=== PATIENT | male | born 1980 | race Caucasian/White ===

== ENCOUNTER 2019-07-07 14:00 | Day surgery (SDC) ==
[2019-07-07 14:20] LABS: URINE SOURCE CLEAN CATCH
[2019-07-07 14:24] LABS: BASO# 0.03 X1000 (0.0-0.2); BASO% 0.2 % (0.0-0.8); EOS# 0.12 X1000 (0.0-0.7); EOS% 0.8 % (0.0-10.0); HEMOGLOBIN 14.7 g/dL (14.0-18.0); IMM GRAN# 0.03 X1000 (0.0-0.04); IMM GRAN% 0.2 % (0.0-0.5); LYMPH# 3.04 X1000 (1.2-3.4); LYMPH% 21.3 % (20.5-51.1); MCH 28.6 PG (27-31); MCHC 33.4 g/dL (33-37); MCV 85.6 FL (81-99); MONO# 0.72 X1000 (0.11-0.59); MONO% 5.1 % (1.7-9.3); MPV 9.8 FL (7.4-10.4); NEUT# 10.31 X1000 (1.4-6.5); NEUT% 72.4 % (42.2-75.2); PLT 457 X1000 (130-400); RBC 5.14 XMIL (4.7-6.1); RDW 13.2 % (11.5-14.5); WBC 14.25 X1000 (4.8-10.8)
[2019-07-07 14:27] LABS: BILIRUBIN URINE SMALL (NEGATIVE); BLOOD URINE NEGATIVE (NEGATIVE); COLOR YELLOW; GLUCOSE URINE NEGATIVE (NEGATIVE); KETONE URINE 60 mg/dL (NEGATIVE); LEUKOCYTES URINE NEGATIVE (NEGATIVE); NITRITE URINE NEGATIVE (NEGATIVE); PROTEIN URINE 50 mg/dL (NEGATIVE); SP GRAVITY URINE 1.038; TURBIDITY URINE CLEAR (CLEAR); UROBILINOGEN URINE 3 mg/dL (NORMAL)
[2019-07-07 14:29] LABS: UR EPITHELIAL CELLS <10 /HPF (<10); URINE BACTERIA NEGATIVE /HPF; URINE WBC <10 /HPF (<10)
[2019-07-07 14:49] LABS: AGAP 15; ALB/GLOB RATIO 1.1; ALBUMIN 4.4 g/dL (3.5-5.0); ALKALINE PHOSPHATASE 107 U/L (32-122); BUN 8 mg/dL (8-22); CALCIUM 9.7 mg/dL (8.8-10.2); CHLORIDE 98 mmol/L (98-107); COSMO 276; ESTIMATED GFR > 60; GLUCOSE 104 mg/dL (70-104); GOT 53 U/L (10-34); GPT 35 U/L (10-44); SODIUM 139 mmol/L (136-145); TCO2 26 mmol/L (25-35); TOTAL BILIRUBIN 1.27 mg/dL (0.20-1.00); TOTAL PROTEIN 8.3 g/dL (6.3-8.3)
[2019-07-07] MEDS ORDERED: NS 1,000 ML IV ONE (15:08)
[2019-07-07] MEDS ORDERED: BENTYL IM ONE (15:08)
--- NOTE | 2019-07-07 15:34 | Diag Imaging Result Doc PS360 ---
EXAM: CT ABDOMEN/PELVIS W/O CONTRAST 07/07/2019 HISTORY: RUQ abdominal pain TECHNIQUE: This exam was performed using automated exposure control, adjustment of mA or kV according to patient size, and/or use of iterative reconstruction technique. COMMENT: There is no evidence of acute disease in the visualized portion of the chest. There are multiple large gallstones in the gallbladder which are apparently mostly cholesterol stones and measure in excess of 2 cm in size. There is apparent wall edema of the gallbladder. There is no evidence of nephrolithiasis or hydronephrosis. There is no evidence of bowel obstruction. The appendix is normal in caliber. There is free fluid in the pelvis dependently. The urinary bladder is unremarkable. The visualized skeleton is within normal limits. IMPRESSION: Cholelithiasis. The possibility of cholecystitis cannot be excluded. Electronically signed by Joshua Demarco 07/07/2019 3:31 PM
[2019-07-07] MEDS ORDERED: FLAGYL 500 MG/NS 500 MG/100 ML IVPB IV ONE (15:48)
[2019-07-07] MEDS ORDERED: CIPRO 400 MG/D5W 400 MG/200 ML IVPB IV ONE (15:48)
[2019-07-07] MEDS ORDERED: TORADOL IV ONE (15:57)
[2019-07-07] MEDS ORDERED: VERSED ONE (16:25)
[2019-07-07] MEDS ORDERED: NORCURON ONE (16:25)
[2019-07-07] MEDS ORDERED: DIPRIVAN 1% ONE (16:25)
[2019-07-07] MEDS ORDERED: SODIUM CHLORIDE 0.9% 10 ML ONE (16:25)
[2019-07-07] MEDS ORDERED: XYLOCAINE-MPF 2% ONE (16:25)
[2019-07-07] MEDS ORDERED: FENTANYL ONE (16:25)
[2019-07-07] MEDS ORDERED: QUELICIN (DOSE) ONE (16:25)
--- NOTE | 2019-07-07 16:31 | PROVIDER DOCUMENTATION ---
This chart was entered by Sadie Ahumada Scribe, acting as scribe for Julieth Peraza MD. HPI-Abdominal Pain/GI Problem - General Chief Complaint: Abdominal Pain Stated Complaint: ABD PAIN,BACK PAIN,VOMITING,DIARRHEA Time Seen by Provider: 07/07/19 14:58 Source: patient Allergies/Adverse Reactions: Patient Allergies Allergy/AdvReac Type Severity Reaction Status Date / Time No Known Allergies Allergy Verified 07/07/19 16:28 Home Medications: Home Medication List Medication Instructions Recorded Confirmed Last Taken Type Sertraline HCl 1 tab PO DAILY 07/07/19 07/07/19 Unknown History Trazodone [Desyrel] 12.35 mg PO QHS 07/07/19 07/07/19 Unknown History Hydrocodone/Acetaminophen [[place] 1 ea PO Q6H PRN #10 tab 07/08/19 Unknown Rx 7.5-325 Tablet] - History of Present Illness-ABD Nature of Presenting Problems: 39yom presents to ED cc RUQ pain that radiates to back and diarrhea since this morning. Pt reprots he did take Lamectal for the diarrhea, went to sleep and when he woke up the abdominal pain was severe for the 2nd time in a week. Pt reports, with approval, he stopped Suboxone cold turkey after 6yrs on it. Pt is on Zoloft and Trazadone. Abdominal Pain Onset Location: reports: RUQ Pain Radiation: reports: back Quality of Pain: reports: throbbing Severity in ED: reports: mild, moderate Onset/Duration: reports: this morning Timing: reports: still present, intermittent Activities at Onset: reports: light activity Exposure to sick contacts?: No Modifying Factors: worse with: palpation Associated Symptoms: reports: diarrhea Similar Symptoms Previously?: No Recently seen or treated by another doctor?: No Review of Systems - Adult - REVIEW OF SYSTEMS - ADULT Constitutional: reports: see HPI. denies: chills, fever, fatique Eyes: reports: no symptoms reported Ears, Nose, Mouth & Throat: reports: no symptoms reported Cardiovascular: reports: no symptoms reported Respiratory: reports: no symptoms reported Gastrointestinal: reports: see HPI, abdominal pain (RUQ), diarrhea. denies: vomiting Genitourinary: reports: no symptoms reported Musculoskeletal: reports: no symptoms reported Integumentary: reports: no symptoms reported Neurological: reports: no symptoms reported Psychiatric: reports: no symptoms reported Endocrine: reports: no symptoms reported Hematologic/Lymphatic: reports: no symptoms reported Allergic/Immunologic: reports: no symptoms reported All Other Systems: Reviewed and Negative Past History - Adult - PAST MEDICAL HISTORY-ADULT Review of Records: reports: Nursing Assessment Review, Medications Reviewed, Social history reviewed & non-contributory. Major Childhood Illnesses: reports: denies history Cardiovascular: reports: denies history Respiratory: reports: denies history Gastrointestinal: reports: denies history Obstetrical/Gynecological: reports: denies history Genitourinary: reports: denies history Musculoskeletal: reports: denies history Neurological: reports: denies history Endocrine/Immune: reports: denies history Other Conditions: reports: denies history - IMMUNIZATION STATUS Childhood Immunizations: See Nurse Assessment Flu Vaccine: See Nurse Assessment - FAMILY HISTORY Family History: reviewed, not pertinent - SOCIAL HISTORY Smoking: other (vape) Provider spent 3-5 mins advising pt. on dangers of tobacco.: Discussed manners to quit use, and f/u contacts for add'l counseling. Physical Exam-General - PHYSICAL EXAM-ADULT Initial Vital Signs Reviewed: Yes - CONSTITUTIONAL General Appearance: appears well, alert, no apparent distress. negative: anxiou s, combative - EYES Eyes: PERRL/EOMI, pink conjunctivae. negative: photophobia - HEAD, EARS, NOSE, MOUTH & THROAT HENMT: normocephalic/atraumatic, moist mucous membranes. negative: angioedema - NECK Neck: normal inspection - RESPIRATORY Respiratory: chest non-tender, lungs clear, normal breath sounds. negative: stridor, wheezing - CARDIOVASCULAR Cardiovascular: normal peripheral pulses, regular rate, rhythm, no edema. negative: bradycardia, tachycardia - GASTROINTESTINAL (ABDOMEN) Abdominal Exam: normal bowel sounds, soft, tenderness (RUQ). negative: dist ended - MUSCULOSKELETAL Back Exam: no vertebral tenderness, CVA tenderness (right) Extremity: normal range of motion, normal gait, normal inspection. negative: deformity - SKIN Integumentary: normal color, normal turgor, warm/dry. negative: diaphoresis, jaundice - PSYCHIATRIC Psych/Mental Status: normal mood/affect, oriented x 3. negative: anxious, disheveled Progress - PLAN OF CARE/RESULTS Progress/Plan/Lab Results: Vital Signs - 8 hr 07/07/19 14:03 07/07/19 15:03 Temperature 98.0 F 99 F Pulse Rate 68 63 Respiratory Rate 20 20 Blood Pressure 121/70 120/79 O2 Sat by Pulse Oximetry 97 96 Laboratory Results - last 24 hr 07/07/19 07/07/19 07/07/19 14:10 14:10 14:13 WBC 14.25 H RBC 5.14 Hgb 14.7 Hct 44.0 MCV 85.6 MCH 28.6 MCHC 33.4 RDW Std Deviation 13.2 Plt Count 457 H MPV 9.8 Immature Gran % (Auto) 0.2 Neut % (Auto) 72.4 Lymph % (Auto) 21.3 [place] % (Auto) 5.1 Eos % (Auto) 0.8 Baso % (Auto) 0.2 Immature Gran # (Auto) 0.03 Neut # (Auto) 10.31 H Lymph # (Auto) 3.04 [place]borne # (Auto) 0.72 H Eos # (Auto) 0.12 Baso # (Auto) 0.03 Sodium 139 Potassium 4.0 Chloride 98 Carbon Dioxide 26 Anion Gap 15 BUN 8 Creatinine 1.0 Estimated GFR/1.73 m2 > 60 BUN/Creatinine Ratio 8 Glucose 104 Calculated Osmolality 276 Calcium 9.7 Total Bilirubin 1.27 H AST 53 H ALT 35 Alkaline Phosphatase 107 Total Protein 8.3 Albumin 4.4 Globulin 3.9 Albumin/Globulin Ratio 1.1 Urine Source CLEAN CATCH Urine Color YELLOW Urine Turbidity CLEAR Urine pH 6.0 Ur Specific [place] 1.038 Urine Protein 50 A Ur Glucose (Stick) NEGATIVE Ur Ketones (Stick) 60 A Urine Blood NEGATIVE Urine Nitrite NEGATIVE Urine Bilirubin SMALL A Urobilinogen Dipstick 3 A Urine Leukocytes NEGATIVE Urine WBC (Auto) <10 Urine RBC (Auto) 10-20 A U Epithel Cells (Auto) <10 Urine Bacteria (Auto) NEGATIVE Urine Crystals Not Reportable Small Round Cells Not Reportable Urine Casts Not Reportable Urine Yeast-like Cells Not Reportable Orders Category Date Time Status NPO Diet 07/07/19 15:[address] ABDOMEN/PELVIS W/O CONTRAST [CT] Stat Exams 07/07/19 15:03 Ordered CBC WITH DIFF [HEME] Stat Lab 07/07/19 14:10 Completed COMPREHENSIVE METABOLIC PANEL [CHEM] Stat Lab 07/07/19 14:10 Completed URINALYSIS [URINALYSIS] Stat Lab 07/07/19 14:13 Completed URINE MANUAL MICROSCOPIC [URINALYSIS] Stat Lab 07/07/19 14:13 Completed Ns 1000 ml IV Bolus X1 Med 07/07/19 15:08 Ordered 0.9% Sodium Chloride Inj [Ns] 1,000 ml IV 999 mls/hr Abd Pain/Abn Bleeding Stat Oth 07/07/19 14:06 Ordered Result Diagrams: 07/07/19 14:10 07/07/19 14:10 - REASSESSMENT Reassessment #1 Time Reassessed: 16:12 Status: unchanged (pt states he tried to eat some crackers and drink water at 13 00 today.) - CT/MRI 1 CT Study: Abdomen Impression: See EMR Report (IMPRESSION: Cholelithiasis. The possibility of chol ecystitis cannot be excluded. Electronically signed by Joshua Demarco 07/07/2019 3:31 PM) - CONSULTS/PCP/HOSPITALIST Notification #1 *Consult/PCP/Hospitalist*: Dr. Morales paged Time Discussed: 15:52 #2 Consult: Dr. Morales Time Discussed: 16:08 Consult Disposition: Admit Departure - Departure Date of Disposition Decision: 07/07/19 Time of Disposition Decision: 16:08 DIAGNOSIS: Cholecystitis, Cholelithiasis, Urinary tract infection Disposition: ADMITTED INPATIENT 09 Certified Medical Emergency: Emergent Condition: Stable - Critical Care Note This patient required my direct & personal management of CC.: No Attestation - Physician/ VALDEMAR Attestation Patient care was provided by Advanced Practice Provider:: No The physician spent face to face time with patient:: Yes Advanced Practice Provider documentation review:: Supervising physician onsite and consulted in the evaluation and care of this patient. The physician did have a face to face encounter with the patient. This chart was documented by the indicated scribe, (Sadie Ahumada Scribe) and accurately reflects the services I performed and decisions made by me, Julieth Peraza MD, as attested by the provider's signature.
[2019-07-07] MEDS ORDERED: KEFZOL 1 GM/D5W 1 GM/50 ML IVPB ONE ×2 (16:50)
[2019-07-07] MEDS ORDERED: LR 1,000 ML ONE ×4 (16:51→18:50)
[2019-07-07] MEDS ORDERED: SENSORCAINE 0.5%-EPI 1:200,000 ONE ×2 (16:51)
[2019-07-07] MEDS ORDERED: SODIUM CHLORIDE 0.9% ONE ×2 (16:51)
[2019-07-07] MEDS ORDERED: ZOFRAN ONE (17:24)
[2019-07-07] MEDS ORDERED: DECADRON ONE (17:24)
[2019-07-07] MEDS ORDERED: KEFZOL 1 GM/D5W 1 GM/50 ML IVPB IV ONE (17:30)
[2019-07-07] MEDS ORDERED: TORADOL ONE (17:51)
[2019-07-07] MEDS ORDERED: NEOSTIGMINE ONE (17:51)
[2019-07-07] MEDS ORDERED: ROBINUL ONE (17:51)
[2019-07-07] MEDS ORDERED: PHENERGAN IV PRN (19:12)
[2019-07-07] MEDS ORDERED: DILAUDID ONE ×2 (19:12)
[2019-07-07] MEDS ORDERED: SODIUM CHLORIDE 0.9% INJ PRN (19:15)
[2019-07-07] MEDS: DILAUDID IV PRN ×2 (19:15→19:24)
--- NOTE | 2019-07-07 20:50 | Diag Imaging Result Doc PS360 ---
EXAM: OPERATIVE CHOLANGIOGRAM 07/07/2019 HISTORY: CHOLECYSTITIS TECHNIQUE: Intraoperative cholangiogram COMMENT: There are no filling defects. There is contrast in the duodenum. IMPRESSION: No evidence of retained stones. Electronically signed by Joshua Demarco 07/07/2019 8:48 PM
--- NOTE | 2019-07-07 21:42 | HISTORY AND PHYSICAL ---
HISTORY OF PRESENT ILLNESS: Tony Boggs is a 39-year-old, white male who is brought to the emergency department with his mother at his side. For the last 2 days, he has been experiencing right upper quadrant pain radiating to his back. A CT scan was performed as part of his evaluation in our emergency department, which suggested gallstones. His white blood cell count was elevated and we were asked to see him for acute cholecystitis. PAST MEDICAL HISTORY: He is coming off opioids with Suboxone. He has a history of hepatitis C. MEDICATIONS: As above. ALLERGIES: No known drug allergies. SOCIAL HISTORY: Works in IT. His mother was at the bedside. FAMILY HISTORY: He does have a family history of gallstones and cholecystectomy. REVIEW OF SYSTEMS: Fourteen point review of systems was performed and was essentially negative except for the history of present illness. PHYSICAL EXAMINATION: GENERAL: On exam, Tony Boggs is a slim, young, white male in no acute distress. HEENT EXAMINATION: No jaundice. No oral lesions. Satisfactory dentition. No cervical or supraclavicular lymphadenopathy. HEART: Has a regular rate. LUNGS: Were clear to auscultation and percussion bilaterally. ABDOMEN: Was flat. He was tender in the right upper quadrant. There was no palpable mass. No previous scar. No evidence of hernia. RECTAL EXAM: Was not performed. EXTREMITIES: He does have palpable peripheral pulses. No peripheral edema. NEUROLOGICALLY: No focal deficit. He is awake and cooperative. IMPRESSION: Acute cholecystitis with cholelithiasis. PLAN: Laparoscopic, possible open cholecystectomy this evening. I have discussed the procedure in detail with him and his mother at the bedside including its risks of bleeding, infection, injury to the extrahepatic bile ducts requiring reoperation, conversion of laparoscopic to open cholecystectomy, bile leak requiring reoperation for drainage, and injury to intra-abdominal contents for trocar placement. They understand the need for surgery and its risks, and they want to proceed. cc: Julieta Morales MD
[2019-07-07] MEDS ORDERED: TYLENOL PO PRN (22:00)
[2019-07-07] MEDS: MOTRIN PO SCH (22:47)
[2019-07-07] MEDS: NORCO-10 PO PRN (22:47)
[2019-07-07] MEDS: PERIDEX MT SCH (22:47)
[2019-07-07] MEDS: LR 1,000 ML IV SCH (22:49)
--- NOTE | 2019-07-08 05:12 | OPERATIVE NOTE ---
PROCEDURE DATE: 07/07/2019 PREOPERATIVE DIAGNOSIS: Acute cholecystitis with cholelithiasis. POSTOPERATIVE DIAGNOSIS: Acute cholecystitis with cholelithiasis. PRINCIPAL PROCEDURE: Laparoscopic cholecystectomy with intraoperative cholangiogram. SURGEON: Julieta Morales MD ELECTRICAL CONTROLS TECHNICIAN: JOSE Garber ANESTHESIA: General, in addition to local anesthetic. ESTIMATED BLOOD LOSS: 30 mL DRAINS: None. INDICATIONS: Mr. Tony Boggs is a 39-year-old white male who presented to our emergency department with a 2-day history of intermittent right upper quadrant pain. His white blood cell count was elevated. Part of his evaluation was a CT scan of his abdomen and pelvis which suggested gallstones. It was felt that he had acute cholecystitis, and cholecystectomy was recommended. FINDINGS: His gallbladder was tightly distended and was acutely inflamed. It had large round stones within it. We did do an intraoperative cholangiogram, which showed free flow of the dye into the duodenum without evidence of extrahepatic stones or obstruction. The liver appeared to be healthy, as did the surface of the bowel. No other intra-abdominal pathology was noted, and we felt we did the operation safely. DESCRIPTION OF PROCEDURE: The patient was brought to the operating room, placed supine, received general anesthesia and was intubated. His abdomen was prepped and draped within a sterile field. He received Ancef prophylactically. I made a curvilinear incision below the umbilicus using a 15 blade scalpel. Veress needle was introduced through this incision into the abdomen. Pneumoperitoneum was established. The Veress needle was removed and I placed an 11 mm trocar through this incision into the abdomen. The camera was placed through this port, and the abdomen was explored for injury. There was none. Three other trocars were placed along the right costal margin under direct vision with the camera. We placed an 11 mm trocar just to the right of midline and two 5 mm trocars in our midclavicular and anterior axillary lines. Through our most lateral port we used a needle and suction, and we decompressed the gallbladder so that we could manipulate it. I used a grasper with teeth to grab the fundus of the gallbladder and retract it superiorly, along with the right lobe of the liver. Another grasper was used to grab the body of the gallbladder, and the triangle of Calot was bluntly dissected. There was edematous fluid around the gallbladder. The gallbladder was acutely inflamed. There was a large lymph node in the triangle of Calot, which we worked around. We identified the cystic duct along its length. I placed a clip at the cystic duct-gallbladder junction. I made a small incision in the cystic duct using hook scissors, and a Taut intraoperative cholangiogram catheter was used to perform the cholangiogram, with the findings above. Once cholangiogram was completed, I removed the catheter and 2 clips were placed proximally on the cystic duct. I divided the cystic duct between clamps using hook scissors. The cystic artery was identified. A clamp was placed distally, 2 proximally. It was divided using hook scissors. The spatula cautery was used to remove the gallbladder from the liver bed. There was no spillage of stones or bile during this procedure, but I did use an Endobag to remove the gallbladder through our umbilical incision. I had to enlarge this incision to get these large stones out with the gallbladder. I placed the trocar back through this incision and the area of operation was thoroughly inspected, irrigated, and the irrigation was removed with suction. There was no evidence of ongoing bleeding or bile leak. No drains were left. All trocars were removed under direct vision with the camera. The pneumoperitoneum was allowed to dissipate. I used several [id number] 2-0 Vicryl stitches to reapproximate the fascia at the umbilicus, and then all skin was closed with 4-0 Monocryl subcuticular stitches. Steri-Strips were applied. Plans are for him to go the recovery room and then be admitted overnight. cc: Julieta Morales MD
[2019-07-08] MEDS: MOTRIN PO SCH (05:32)
[2019-07-08 07:47] VITALS: BP 124/75
[2019-07-08] MEDS: NORCO-10 PO PRN (07:48)
[2019-07-08] MEDS: PERIDEX MT SCH (09:07)
[2019-07-08] MEDS: LR 1,000 ML IV SCH (10:09)
--- NOTE | 2019-07-08 20:00 | DISCHARGE SUMMARY ---
ADMISSION DATE: 07/07/2019 DISCHARGE DATE: 07/08/2019 ADMITTING DIAGNOSIS: Acute cholecystitis with cholelithiasis. DISCHARGE DIAGNOSIS: Acute cholecystitis with cholelithiasis. PRINCIPAL PROCEDURE: Laparoscopic cholecystectomy with intraoperative cholangiogram on 07/07/2019. DISCHARGE DISABILITIES: Full. DISCHARGE MEDICATIONS: He is to return to his home medications. DISCHARGE DIET: Regular. DISCHARGE DISPOSITION: He will return to our outpatient offices in a week. HOSPITAL COURSE: Mr. Tony Boggs is a 39-year-old white male who presented to our emergency department with a 2-day history of right upper quadrant pain. X-ray suggested gallstones and possible acute cholecystitis. His white blood cell count was elevated. We felt that he had acute cholecystitis with cholelithiasis. Later that afternoon he went to the operating room for laparoscopic cholecystectomy with intraoperative cholangiogram. He did have acute cholecystitis with large, round gallstones. Our cholangiogram at the time of surgery was normal. No drains were left. After surgery, he went to the recovery room and then, because it was late in the day, he was hospitalized overnight on our [address] [place] [address] Gar[facility]. On postop day 1, he was tolerating liquids. Clinically he felt much better. His trocar sites were intact. He was able to ambulate easily in the room. It was felt safe to discharge him home under the care of his parents with followup in my outpatient office in a week. He knows to contact us with any problems such as increasing abdominal pain, distention or fever. cc: Julieta Morales MD
== END 2019-07-08 11:36 | disposition home or self-care (01) ==
LOC: 4N 14:00 → ED 14:00 → OPS 18:31
PROVIDERS: ATTEND Surgery